=== PATIENT | female | born 1950 | race Asian ===

== ENCOUNTER 2018-07-18 09:23 | Day surgery (SDC) | payer MEDICARE, OTHER ==
[2018-07-18] MEDS ORDERED: PROPOFOL 20 ML ×2 (10:33→11:01)
== END 2018-07-18 15:09 | disposition home or self-care (01) ==
LOC: GIL 09:23
DX: K92.1 Melena (principal); D12.5 Benign neoplasm of sigmoid colon; K64.8 Other hemorrhoids; K57.30 Diverticulosis of large intestine without perforation or abscess without bleeding; I10 Essential (primary) hypertension; E78.5 Hyperlipidemia, unspecified; E03.9 Hypothyroidism, unspecified
CPT/HCPCS: 45380; 88305